=== PATIENT | male | born 1965 | race African-American/Black ===

== ENCOUNTER 2017-01-13 16:53 | Observation (INO) | payer SELFPAY ==
[~2017-01-13] VITALS: Ht 190.5 cm; Wt 70.0 kg
[2017-01-13 16:56] VITALS: BP 125/81; PULSE 81; RESP 16; TEMP 98; O2SAT 88
[2017-01-13] MEDS ORDERED: MORPHINE SULFATE 4 MG/ML INJ IV PUSH ONE (19:30)
[2017-01-13] MEDS ORDERED: ONDANSETRON HCL 4 MG/2 ML VIAL IV PUSH ONE (19:30)
[2017-01-13 19:32] VITALS: BP 166/97; PULSE 65; RESP 18; O2SAT 100
--- NOTE | 2017-01-13 19:35 | PD ---
HPI Chief Complaint: Cold / Flu Symptoms Time Seen by Provider: 19:25 Travel History International Travel<30 days: No Contact w/Intl Traveler<30days: No Traveled to known affect area: No History of Present Illness HPI 51-year-old male complains of chest pain and hemoptysis. Patient states that he started having a nonproductive cough for the past week. Patient states that he started coughing up blood today. Patient states that he has intermittently chest wall pain with coughing. Patient denies any fever chills. Patient denies any shortness of breath. Patient denies any history of TB exposure. Patient has history of drinking beer daily. Patient is a smoker. Patient smokes one pack a day. Patient has history of psoriasis. Patient denies any recent injury. PFSH Past Medical History Diminished Hearing: No Integumentary: Yes (PSORIASIS) Tetanus Vaccination: > 5 Years Influenza Vaccination: No Past Surgical History Surgical History: No Previous Surgery Social History Alcohol Use: Yes (BEERS EVERY DAY ) Tobacco Use: Yes (1 PACK PER DAY) Substance Use: No Allergies-Medications (Allergen,Severity, Reaction): Coded Allergies: No Known Allergies (Unverified , 01/13/17) Reported Meds & Prescriptions Reported Meds & Active Scripts Active No Active Prescriptions or Reported Medications Review of Systems General / Constitutional: No: Fever Eyes: No: Visual changes HENT: No: Headaches Cardiovascular: No: Chest Pain or Discomfort Respiratory: Positive: Cough, Hemoptysis, No: Shortness of Breath Gastrointestinal: No: Abdominal Pain Genitourinary: No: Dysuria Musculoskeletal: No: Pain Skin: No Rash Neurologic: No: Weakness Psychiatric: No: Depression Endocrine: No: Polydipsia Hematologic/Lymphatic: No: Easy Bruising Physical Exam Narrative GENERAL: Well-nourished, well-developed patient. SKIN: Warm and dry. HEAD: Normocephalic. EYES: No scleral icterus. No injection or drainage. NECK: Supple, trachea midline. No JVD or lymphadenopathy. CARDIOVASCULAR: Regular rate and rhythm without murmurs, gallops, or rubs. RESPIRATORY: Breath sounds equal bilaterally. No accessory muscle use. Few rhonchi at the left base. GASTROINTESTINAL: Abdomen soft, non-tender, nondistended. MUSCULOSKELETAL: No cyanosis, or edema. BACK: Nontender without obvious deformity. No CVA tenderness. Neurologic exam normal. Data Data Last Documented VS Vital Signs Date Time Temp Pulse Resp B/P Pulse Ox O2 Delivery O2 Flow Rate FiO2 01/13/17 19:32 65 18 166/97 100 Room Air 01/13/17 16:56 98.0 Orders Electrocardiogram (01/13/17 19:30) Complete Blood Count With Diff (01/13/17 19:30) Comprehensive Metabolic Panel (01/13/17 19:30) Creatine Kinase (Cpk) (01/13/17 19:30) Troponin I (01/13/17 19:30) B-Type Natriuretic Peptide (01/13/17 19:30) Prothrombin Time / Inr (Pt) (01/13/17 19:30) Act Partial Throm Time (Ptt) (01/13/17:30) Lipase (01/13/17:30) D-Dimer (01/13/17:30) Influenzae A/B Antigen (01/13/17 19:30) Chest, Single Ap (01/13/17 19:30) Iv Access Insert/Monitor (01/13/17 19:30) Ecg Monitoring (01/13/17 19:30) Oximetry (01/13/17 19:30) Ct Pulmonary Angiogram (01/13/17 19:30) Morphine Inj (Morphine Inj) (01/13/17 19:30) Ondansetron Inj (Zofran Inj) (01/13/17 19:30) Iohexol 350 Inj (Omnipaque 350 Inj) (01/13/17 20:58) Labs Laboratory Tests Test 01/13/17 19:45 White Blood Count 3.3 TH/MM3 Red Blood Count 4.55 MIL/MM3 Hemoglobin 12.6 GM/DL Hematocrit 37.1 % Mean Corpuscular Volume 81.5 FL Mean Corpuscular Hemoglobin 27.7 PG Mean Corpuscular Hemoglobin 34.0 % Concent Red Cell Distribution Width 15.9 % Platelet Count 151 TH/MM3 Mean Platelet Volume 7.7 FL Neutrophils (%) (Auto) 31.1 % Lymphocytes (%) (Auto) 50.3 % Monocytes (%) (Auto) 14.8 % Eosinophils (%) (Auto) 2.4 % Basophils (%) (Auto) 1.4 % Neutrophils # (Auto) 1.0 TH/MM3 Lymphocytes # (Auto) 1.7 TH/MM3 Monocytes # (Auto) 0.5 TH/MM3 Eosinophils # (Auto) 0.1 TH/MM3 Basophils # (Auto) 0.0 TH/MM3 CBC Comment DIFF FINAL Differential Comment Prothrombin Time 12.9 SEC Prothromb Time International 1.2 RATIO Ratio Activated Partial 30.6 SEC Thromboplast Time D-Dimer Quantitative (PE/DVT) 0.27 MG/L FEU Sodium Level 123 MEQ/L Potassium Level 4.7 MEQ/L Chloride Level 87 MEQ/L Carbon Dioxide Level 24.4 MEQ/L Anion Gap 12 MEQ/L Blood Urea Nitrogen 4 MG/DL Creatinine 0.61 MG/DL Estimat Glomerular Filtration 170 ML/MIN Rate Random Glucose 77 MG/DL Calcium Level 8.4 MG/DL Total Bilirubin 0.5 MG/DL Aspartate Amino Transf 277 U/L (AST/SGOT) Alanine Aminotransferase 127 U/L (ALT/SGPT) Alkaline Phosphatase 95 U/L Total Creatine Kinase 297 U/L Troponin I LESS THAN 0.02 NG/ML B-Type Natriuretic Peptide 24 PG/ML Total Protein 8.6 GM/DL Albumin 3.9 GM/DL Lipase 198 U/L MDM Medical Decision Making Medical Screen Exam Complete: Yes Emergency Medical Condition: Yes Interpretation(s) Last Impressions Chest X-Ray 01/13/171929 Signed Impressions: Service Date/Time: Friday, January 13, 2017 19:55 - CONCLUSION: No acute cardiopulmonary disease. Sergo Carlisle MD CT Angiography 01/13/171929 Signed Impressions: Service Date/Time: Friday, January 13, 2017 20:45 - CONCLUSION: Right middle lobe atelectasis and/or scar. Sergo Carlisle MD 21:30 PM. CBC WBC 3.3. Hemoglobin 12.6 hematocrit 37.1. 50 lymphocyte. Sodium 123. Chloride 87. AST 277. ALT 127. Cardiac enzymes are normal. Differential Diagnosis Differential diagnosis including bronchitis, pneumonia, PE, pneumothorax, lung mass. Narrative Course 51-year-old male with coughing, anterior chest wall pain, hemoptysis. Zithromax 500 mg IV. Rocephin 1 g IV. Normal saline solution 1 L IV bolus. Thiamine 100 mg IV given. Diagnosis Primary Impression: Hyponatremia Additional Impressions: Bronchitis Hemoptysis Alcohol abuse Admitting Information Admitting Physician Requests: Observation Scripts No Active Prescriptions or Reported Meds Mario Amaral MD Jan 13, 2017 19:35
[2017-01-13 20:03] LABS: BASOPHIL % 1.4 % (0.0-2.0); EOSINOPHIL # 0.1 TH/MM3 (0-0.4); EOSINOPHIL % 2.4 % (0.0-4.0); HEMATOCRIT 37.1 % (39.0-51.0); HEMO FLAGS DIFF FINAL; LYMPH % 50.3 % (9.0-44.0); LYMPHOCYTE # 1.7 TH/MM3 (1.0-4.8); MEAN CELL VOLUME 81.5 FL (80.0-100.0); MEAN CORPUSCULAR HEMOGLOBIN 27.7 PG (27.0-34.0); MONO % 14.8 % (0.0-8.0); NEUT % 31.1 % (16.0-70.0); PLATELET COUNT 151 TH/MM3 (150-450); RED BLOOD COUNT 4.55 MIL/MM3 (4.50-5.90); RED CELL DISTRIBUTION WIDTH 15.9 % (11.6-17.2); WHITE BLOOD COUNT 3.3 TH/MM3 (4.0-11.0)
[2017-01-13 20:14] LABS: APTT (PATIENT) 30.6 SEC (24.3-30.1); INTERNATIONAL NORMALIZED RATIO 1.2 RATIO; PROTHROMBIN TIME - PATIENT 12.9 SEC (9.8-11.6)
[2017-01-13 20:18] LABS: ALT (GPT) 127 U/L (12-78); ANION GAP 12 MEQ/L (5-15); AST (GOT) 277 U/L (15-37); BICARBONATE 24.4 MEQ/L (21.0-32.0); BLOOD UREA NITROGEN 4 MG/DL (7-18); CHLORIDE 87 MEQ/L (98-107); GLOMERULAR FILTRATION RATE 170 ML/MIN (>89); POTASSIUM 4.7 MEQ/L (3.5-5.1)
[2017-01-13 20:21] LABS: SODIUM (NA) 123 MEQ/L (136-145)
[2017-01-13 20:24] LABS: ALKALINE PHOSPHATASE 95 U/L (45-117); CREATINE KINASE 297 U/L (39-308); TOTAL BILIRUBIN ADULT 0.5 MG/DL (0.2-1.0)
--- NOTE | 2017-01-13 20:26 | RADRPT ---
EXAM DATE/TIME: 01/13/2017 19:55 [facility] COMPARISON: No previous studies available for comparison. INDICATIONS : Cough for 1 week. MEDICAL HISTORY : None. SURGICAL HISTORY : None. ENCOUNTER: Initial ACUITY: 1 week PAIN SCORE: 3/10 LOCATION: Bilateral chest FINDINGS: The lungs are clear without infiltrate, nodule, or mass. There is no appreciable pleural effusion fo r technique. Heart and mediastinum are unremarkable. CONCLUSION: No acute cardiopulmonary disease. Sergo Carlisle MD on January 13, 2017 at 20:25 Board Certified Radiologist. This report was verified electronically.
[2017-01-13] MEDS ORDERED: IOHEXOL 350 MG/ML 10 ML VIAL (for RAD DIAG) IV ONE (20:58)
--- NOTE | 2017-01-13 21:07 | RADRPT ---
EXAM DATE/TIME: 01/13/2017 20:45 [facility] COMPARISON: CHEST SINGLE AP, January 13, 2017, 19:55. INDICATIONS : Coughing up blood with chest pain for 1 week; evaluate for pulmonary embolism. IV CONTRAST: 50 cc Omnipaque 350 (iohexol) IV RADIATION DOSE: 5.29 CTDIvol (mGy) MEDICAL HISTORY : None SURGICAL HISTORY : None. ENCOUNTER: Initial ACUITY: 1 week PAIN SCALE: 3/10 LOCATION: chest TECHNIQUE: Volumetric scanning of the chest was performed using a pulmonary embolism protocol MIP images were re constructed. Using automated exposure control and adjustment of the mA and/or kV according to patien t size, radiation dose was kept as low as reasonably achievable to obtain optimal diagnostic quality images. FINDINGS: The lungs are clear without infiltrate, nodule, or mass except for slight atelectasis and/or scar in the right middle lobe. There is no pleural effusion. No appreciable pathological adenopathy is seen within the mediastinum. There is no evidence for PE for technique. CONCLUSION: Right middle lobe atelectasis and/or scar. Sergo Carlisle MD on January 13, 2017 at 21:03 Board Certified Radiologist. This report was verified electronically.
[2017-01-13] MEDS ORDERED: AZITHROMYCIN INJ 500 MG in SODIUM CHLOR 0.9% 250 ML INJ 250 ML IV ONE (21:45)
[2017-01-13] MEDS ORDERED: THIAMINE INJ 100 MG in SODIUM CHLORIDE 0.9% INJ 100 ML IV ONE (21:45)
[2017-01-13] MEDS ORDERED: cefTRIAXone INJ 1,000 MG in SODIUM CHLORIDE 0.9% INJ 100 ML IV ONE (21:45)
[2017-01-13] MEDS ORDERED: SODIUM CHLOR 0.9% 1000 ML INJ 1,000 ML IV ONE (21:45)
[2017-01-13 22:00] VITALS: BP 150/92; PULSE 81; RESP 20; O2SAT 98
[2017-01-13] MEDS ORDERED: SODIUM CHLOR 0.9% 1000 ML INJ 1,000 ML IV SCH (22:00)
[2017-01-13] MEDS ORDERED: SODIUM CHLORIDE 0.9% FLUSH 10 ML FLUSH IV FLUSH PRN (22:00)
[2017-01-13] MEDS ORDERED: NALOXONE HCL 0.4 MG/ML AMP IV PRN (22:00)
[2017-01-14] VITALS: BP 149/90; PULSE 78; RESP 18; O2SAT 98
[2017-01-14 02:49] LABS: BICARBONATE 23.4 MEQ/L (21.0-32.0); POTASSIUM 4.3 MEQ/L (3.5-5.1)
[2017-01-14 02:54] VITALS: BP 152/88; PULSE 75; RESP 18; O2SAT 98
--- NOTE | 2017-01-14 04:55 | HHI.HP ---
HPI Service [facility] Primary Care Physician No Primary Care Physician Admission Diagnosis hyponatremia. Bronchitis. Hemoptysis. Alcohol abuse. Diagnoses: (1) Hyponatremia (2) Alcohol abuse Chief Complaint: cough with blood in it Travel History International Travel<30 Days: No Contact w/Intl Traveler <30 Da: No Traveled to Known Affected Are: No History of Present Illness Mr. Blank is a 51 year-old male with a history of psoriasis who presented to the ER on 01/13/17 for evaluation of chest pain and hemoptysis. He was found to have a sodium level of 123 and was admitted for management. The patient is seen in the emergency room. He reports that he was having a cough for about a week and yesterday noted some specks of blood in the sputum and came to the emergency room for evaluation. He denies fever, nausea, vomiting, diarrhea, red or dark stools, hematuria, dysuria, night sweats, chills , lymphadenopathy. He denies any recent travel. Chest pain on right with cough only. Mr. Blank states he takes no home medications. . Review of Systems Except as stated in HPI: all other systems reviewed are Neg Past Family Social History Past Medical History Psoriasis . Past Surgical History Denies . Reported Medications Reported Meds & Active Scripts Active No Active Prescriptions or Reported Medications Allergies: Coded Allergies: No Known Allergies (Unverified , 01/13/17) Active Ordered Medications Current Medications Morphine Sulfate (Morphine Inj) 2 mg ONCE ONCE IV PUSH Last administered on 19:52; Start 01/13/17 at 19:30; Stop 01/13/17 at 19:33; Status DC Ondansetron HCl (Zofran Inj) 4 mg ONCE ONCE IV PUSH Last administered on 19:53; Start 01/13/17 at 19:30; Stop 01/13/17 at 19:33; Status DC Iohexol 50 ml 50 ml STK-MED ONCE IV Last administered on 01/13/17 20:58; Start 01/13/17 at 20:58; Stop 01/13/17 at 20:59; Status DC Sodium Chloride 1,000 ml @ 999 mls/hr BOLUS ONCE IV Last administered on 01/13 21:56; Start 01/13/17 at 21:45; Stop 01/13/17 at 22:45; Status DC Thiamine HCl 100 mg/Sodium Chloride 101 ml @ 101 mls/hr ONCE ONCE IV Last administered on 01/13/17 21:56; Start 01/13/17 at 21:45; Stop 01/13/17 at 22:44 ; Status DC Ceftriaxone Sodium 1000 mg/ Sodium Chloride 100 ml @ 200 mls/hr ONCE ONCE IV Last administered on 01/13/17 21:56; Start 01/13/17 at 21:45; Stop 01/13/17 at 22:14; Status DC Azithromycin 500 mg/Sodium Chloride 250 ml @ 250 mls/hr ONCE ONCE IV Last administered on 01/13/17 21:57; Start 01/13/17 at 21:45; Stop 01/13/17 at 22:44 ; Status DC Sodium Chloride (NS 1000 ml Inj) 1,000 ml @ 100 mls/hr Q10H IV Last administered on 01/14/17 01:01; Start 01/13/17 at 22:00 Sodium Chloride (NS Flush) 2 ml UNSCH PRN IV FLUSH FLUSH AFTER USING IV ACCESS ; Start 01/13/17 at 22:00 Sodium Chloride (NS Flush) 2 ml BID IV FLUSH ; Start 01/14/17 at 09:00 Naloxone HCl (Narcan Inj) 0.4 mg UNSCH PRN IV SEE LABEL COMMENTS; Start at 22:00 . Family History No known family medical illness Social History ETOH: 4 cans of beer per day Tobacco: smokes 5 cigarettes daily Illicit drugs: denies . Physical Exam Vital Signs Vital Signs Date Time Temp Pulse Resp B/P Pulse Ox O2 Delivery O2 Flow Rate FiO2 01/14/17 02:54 75 18 152/88 98 Room Air 01/14/17 00:00 78 18 149/90 98 Room Air 01/13/17 22:00 81 20 150/92 98 Room Air 01/13/17 19:32 65 18 166/97 100 Room Air 01/13/17 18:33 68 18 98 Room Air 01/13/17 16:56 98.0 81 16 125/81 88 Room Air Physical Exam GENERAL: This is a pleasant well-nourished, well-developed patient, in no apparent distress. SKIN: No rashes, ecchymoses or lesions. Cool and dry. HEAD: Atraumatic. Normocephalic. EYES: No scleral icterus. No injection or drainage. ENT: Nose without bleeding, purulent drainage. NECK: Trachea midline. No JVD or lymphadenopathy. CARDIOVASCULAR: Regular rate and rhythm without murmurs, gallops, or rubs. RESPIRATORY: Clear to auscultation. Breath sounds equal bilaterally. No wheezes , rales, or rhonchi. GASTROINTESTINAL: Abdomen soft, non-tender, nondistended. No guarding. MUSCULOSKELETAL: Extremities without clubbing, cyanosis, or edema. No calf tenderness. NEUROLOGICAL: Awake and alert. Motor and sensory grossly within normal limits. Normal speech. . Laboratory Laboratory Tests Test 01/13/17 01/14/17 19:45 02:30 White Blood Count 3.3 Red Blood Count 4.55 Hemoglobin 12.6 Hematocrit 37.1 Mean Corpuscular Volume 81.5 Mean Corpuscular Hemoglobin 27.7 Mean Corpuscular Hemoglobin 34.0 Concent Red Cell Distribution Width 15.9 Platelet Count 151 Mean Platelet Volume 7.7 Neutrophils (%) (Auto) 31.1 Lymphocytes (%) (Auto) 50.3 Monocytes (%) (Auto) 14.8 Eosinophils (%) (Auto) 2.4 Basophils (%) (Auto) 1.4 Neutrophils # (Auto) 1.0 Lymphocytes # (Auto) 1.7 Monocytes # (Auto) 0.5 Eosinophils # (Auto) 0.1 Basophils # (Auto) 0.0 CBC Comment DIFF FINAL Differential Comment Prothrombin Time 12.9 Prothromb Time International 1.2 Ratio Activated Partial 30.6 Thromboplast Time D-Dimer Quantitative (PE/DVT) 0.27 Sodium Level 123 137 Potassium Level 4.7 4.3 Chloride Level 87 104 Carbon Dioxide Level 24.4 23.4 Anion Gap 12 10 Blood Urea Nitrogen 4 2 Creatinine 0.61 0.50 Estimat Glomerular Filtration 170 213 Rate Random Glucose 77 72 Calcium Level 8.4 8.1 Total Bilirubin 0.5 Aspartate Amino Transf 277 (AST/SGOT) Alanine Aminotransferase 127 (ALT/SGPT) Alkaline Phosphatase 95 Total Creatine Kinase 297 Troponin I LESS THAN 0.02 B-Type Natriuretic Peptide 24 Total Protein 8.6 Albumin 3.9 Lipase 198 Date/Time Procedure Status Source Growth 01/13/17 19:45 Influenza Types A,B Antigen (RONDA) - Final Complete Nasal Washing NEGATIVE FOR FLU A AND B ANTIGEN.... Result Diagram: 01/13/17194401/14/17 0230 Imaging Last Impressions Chest X-Ray 01/13/171929 Signed Impressions: Service Date/Time: Friday, January 13, 2017 19:55 - CONCLUSION: No acute cardiopulmonary disease. Sergo Carlisle MD CT Angiography 01/13/171929 Signed Impressions: Service Date/Time: Friday, January 13, 2017 20:45 - CONCLUSION: Right middle lobe atelectasis and/or scar. Sergo Carlisle MD . Assessment and Plan Problem List: (1) Hyponatremia ICD Code: E87.1 Status: Acute (2) Bronchitis ICD Code: J40 Status: Acute (3) Alcohol abuse ICD Code: F10.10 Status: Acute Assessment and Plan Mr. Blank is a 51 year-old male with a history of psoriasis who presented to the ER on 01/13/17 for evaluation of chest pain and hemoptysis. He was found to have a sodium level of 123 and was admitted for management. Hyponatremia - Sodium was 123 on admission, 137 on recheck - Received one liter bolus and 100 cc/hr NS IVF maintenance fluids Bronchitis with hemoptysis - IV Zithromax and Rocephin given in ER - CT pulmonary angiogram with right middle lobe atelectasis and/or scar - Chest x-ray with no acute cardiopulmonary disease - suspect viral illness - Bactrim DS one tab now - to be given prior to D/C and patient held for an hour to monitor - Bactrim DS one tab q12h p.o. x 10 days - rx written - patient to establish with a PCP for routine health maintenance - patient to return to the ER if symptoms persist or worsen - he expresses understanding - will discharge home - discussed with nursing Alcohol abuse - instructed patient to stop drinking - titrate alcohol - do not stop abruptly - explained withdrawal and withdrawal symptoms Tobacco abuse - Encouraged cessation DVT prophylaxis - SCDs Written by Rena Bryant, acting as scribe for Dr. Chaney on 01/14/17 at 04:55. .This note was transcribed by scribe [Rena Bryant,]. I, Dr. Lady Chaney personally performed the history, physical exam, and medical decision making; and confirmed the accuracy of the information in the transcribed note. Authenticated by Dr. Lady Chaney on 01/14/17 at 04:55. Discussed Condition With ER physician, RN, and patient . Rena Bryant Jan 14, 2017 04:55 Lady Chaney MD February 22, 2017 07:09
[2017-01-14 04:58] VITALS: TEMP 98.7
[2017-01-14 05:00] LABS: HEMATOCRIT 35.3 % (39.0-51.0); MEAN CELL VOLUME 81.2 FL (80.0-100.0); MEAN CORPUSCULAR HEMOGLOBIN 27.4 PG (27.0-34.0); MEAN CORPUSCULAR HGB CONC 33.7 % (32.0-36.0); PLATELET COUNT 160 TH/MM3 (150-450); RED BLOOD COUNT 4.35 MIL/MM3 (4.50-5.90); WHITE BLOOD COUNT 2.5 TH/MM3 (4.0-11.0)
[2017-01-14 05:06] LABS: HEMO FLAGS AUTO DIFF
[2017-01-14] MEDS ORDERED: SULFAMETHOXAZOLE-TRIMETHOPRIM DS 800-160 MG TAB PO ONE (05:15)
[2017-01-14] MEDS ORDERED: BACT800T5 PO (05:22)
--- NOTE | 2017-01-14 05:25 | HHI.DCPOC ---
Discharge Care Plan Diagnosis: (1) Bronchitis (2) Hyponatremia (3) Alcohol abuse Your Health Problems Are: Cough Goals to Promote Your Health * To prevent worsening of your condition and complications * To maintain your health at the optimal level Directions to Meet Your Goals Take your medications as prescribed Follow your dietary instruction Follow activity as directed Keep your appointments as scheduled Take your immunizations and boosters as scheduled If your symptoms worsen call your PCP, if no PCP go to Urgent Care Center or Emergency Room Smoking is Dangerous to Your Health. Avoid second hand smoke and quit smoking Call the 24-hour hour crisis hotline for domestic abuse at Rena Bryant Jan 14, 2017 05:25
[2017-01-14 05:47] LABS: BASOPHILS 4 % (0-2); EOSINOPHILS 2 % (0-4); METAMYELOCYTES 4 % (0-1); NEUTROPHIL # MANUAL DIFF 1.2 TH/MM3 (1.8-7.7); POLYS (SEG NEUTROPHILS) 44 % (16-70); WBC DIFF SAMPLE 50
[2017-01-14 05:48] LABS: PLATELET ESTIMATE SMEAR LOW (NORMAL); PLATELET MORPHOLOGY NORMAL (NORMAL); SCAN/DIFF FINAL DIFF MANUAL; TARGET CELLS 1+ (NORMAL)
[2017-01-14 05:53] LABS: ALKALINE PHOSPHATASE 79 U/L (45-117); ALT (GPT) 120 U/L (12-78); ANION GAP 9 MEQ/L (5-15); AST (GOT) 317 U/L (15-37); BICARBONATE 24.3 MEQ/L (21.0-32.0); BLOOD UREA NITROGEN 2 MG/DL (7-18); CHLORIDE 101 MEQ/L (98-107); GLOMERULAR FILTRATION RATE 173 ML/MIN (>89); POTASSIUM 4.3 MEQ/L (3.5-5.1); SODIUM (NA) 134 MEQ/L (136-145); TOTAL BILIRUBIN ADULT 0.5 MG/DL (0.2-1.0)
[2017-01-14] MEDS ORDERED: SULFAMETHOXAZOLE-TRIMETHOPRIM DS 800-160 MG TAB PO SCH (09:00)
[2017-01-14] MEDS ORDERED: SODIUM CHLORIDE 0.9% FLUSH 10 ML FLUSH IV FLUSH SCH (09:00)
--- NOTE | 2017-01-14 14:52 | EKG ---
Date Performed: 01/13/2017 Time Performed: 20:41:04 PTAGE: 51 years EKG: Sinus rhythm WITH FIRST DEGREE AV BLOCK ABNORMAL ECG NO PREVIOUS TRACING DOCTOR: Benjamin Beavers Interpretating Date/Time 01/14/2017 14:43:10
== END 2017-01-14 07:42 | disposition home or self-care (01) ==
LOC: NEPC 16:53 → NEDA 21:54 → NEDH 01-14 01:54 → UNDODEPER 01-19 00:45
PROVIDERS: ADMIT Hospitalist; ATTEND Hospitalist
DX: J40 Bronchitis, not specified as acute or chronic (principal); E87.1 Hypo-osmolality and hyponatremia; F10.10 Alcohol abuse, uncomplicated; L40.9 Psoriasis, unspecified; F17.200 Nicotine dependence, unspecified, uncomplicated
CPT/HCPCS: 71010; 71275; 80048; 80053; 82550; 83690; 83880; 84484; 85007; 85025; 85027; 85379; 85610; 85730; 87804; 93005; 96374; 96375; G0378; J0456; J0696; J2270; J2405; J3411; J7030; J7050; Q9967